=== PATIENT | female | born 1965 | race Caucasian/White ===

== ENCOUNTER 2020-01-25 12:48 | Inpatient (IN) | payer BC, OTHER ==
[2020-01-25 13:21] VITALS: BMI 34.2
[2020-01-25] MEDS ORDERED: diphenhydrAMINE HCL 25 MG CAPSULE (FP) PO ONE ×2 (13:29→13:45)
[2020-01-25] MEDS ORDERED: IBUPROFEN 600 MG TABLET (FP) PO ONE ×2 (14:01→14:08)
[2020-01-25] MEDS ORDERED: HYDROmorphone HCL 2 MG TABLET PO ONE (14:01)
--- NOTE | 2020-01-25 14:04 | PDOC ---
History of Present Illness - General Chief Complaint: Rash Stated Complaint: Allergic Reaction Time Seen by Provider: 01/25/20 13:41 - History of Present Illness Initial Comments: The pt is a 54F w/ a history of anxiety, chronic back pain, 'histamine problem' who presents for evaluation of diffuse rash for 1 day w/ associated itching and b/l hand swelling. Pt with worsening erythema to BUE/BLE, thorax, and abdomen. The pt reports she was recently diagnosed with Schamberg's disease. However the vascular rash she had on her BLE has now cleared and her rash is now pruritus, sporadically macular. Endorses chills. Denies chest pain, trouble breathing, cough, dysuria, hematuria, diarrhea, or changes in strength. Pt was seen at [facility] and was given Solumedrol 125mg IM 01/25/20 14:03 Past History - Medical History Allergies/Adverse Reactions: Allergies Allergy/AdvReac Type Severity Reaction Status Date / Time Penicillins Allergy Unknown Verified 01/01/16 20:51 DUST MITES Allergy Unknown Uncoded 01/01/16 20:51 Home Medications: Ambulatory Orders Amlodipine Besylate [Norvasc -] 10 mg PO DAILY 01/01/16 Gabapentin 300 mg PO DAILY 01/01/16 Levalbuterol Tartrate [Xopenex Hfa] 15 gm IH BID PRN 01/01/16 Meloxicam [Mobic] 15 mg PO DAILY 01/01/16 Metaxalone [Skelaxin] 800 mg PO TID 01/01/16 Naproxen [Naprosyn -] 500 mg PO BID PRN 01/01/16 Omeprazole 20 mg PO DAILY 01/01/16 Zolpidem Tartrate [Ambien] 10 mg PO HS 01/01/16 Asthma: Yes COPD: No Diabetes: No - Reproductive History Cervical CA: No Dysfunctional Uterine Bleeding: No Ectopic : No Endometrial CA: No Polycystic Ovaries: No Tubal Ligation: No - Immunization History Immunization Up to Date: Yes - Psycho-Social/Smoking History Smoking Status: No Smoking History: Unknown if ever smoked Have you smoked in the past 12 months: No Number of Cigarettes Smoked Daily: 0 If you are a former smoker, when did you quit?: 2006 - Substance Abuse Hx (Audit-C & DAST Scrn) How often the patient has a drink containing alcohol: Never Score: In Men: 4 or > Positive; In Women: 3 or > Positive: 0 Screen Result (Pos requires Nsg. Audit-10AR): Negative In the last yr the pt used illegal drug/Rx for NonMed reason: No Score: Yes response is considered Positive: 0 Screen Result (Positive result requires Nsg. DAST-10): Negative Review of Systems - Review of Systems Able to Perform ROS?: Yes Comments:: GENERAL/CONSTITUTIONAL: +chills; No weakness HEAD, EYES, EARS, NOSE AND THROAT: No change in vision. No change in hearing. No sore throat CARDIOVASCULAR: No chest pain or shortness of breath RESPIRATORY: Denies cough, hemoptysis GASTROINTESTINAL: No nausea, vomiting, diarrhea GENITOURINARY: No dysuria, MUSCULOSKELETAL: +chronic back pain SKIN: +diffuse rash/itching NEUROLOGIC: No headache, vertigo, loss of consciousness, or change in strength/sensation ENDOCRINE: No increased thirst. No abnormal weight change HEMATOLOGIC/LYMPHATIC: No anemia, easy bleeding, or history of blood clots ALLERGIC/IMMUNOLOGIC: +diffuse itching 01/25/20 16:18 Is the patient limited Ukrainian proficient: No *Physical Exam - Vital Signs Last Vital Signs Temp Pulse Resp BP Pulse Ox 99.3 F 108 H 20 91/66 100 01/25/20 13:17 01/25/20 13:17 01/25/20 13:17 01/25/20 13:17 01/25/20 13:17 - Physical Exam GENERAL: Awake, alert, and oriented to person/place/time, in no acute distress HEAD: No signs of trauma, normocephalic, atraumatic EYES: PERRLA, EOMI, sclera anicteric, conjunctiva clear ENT: Hearing grossly normal, nares patent, oropharynx clear without exudates. Moist mucosa, no intraoral lesions LUNGS: No distress, speaks in full sentences, clear to auscultation bilaterally HEART: Tachycardia rate with regular rhythm, normal S1 and S2, no murmurs appreciated, peripheral pulses normal and equal bilaterally ABDOMEN: Soft, nontender, normoactive bowel sounds. No guarding, no rebound EXTREMITIES: Moves all extremities independently; edema noted to b/l hands; cap refill < 2 sec NEUROLOGICAL: Cranial nerves II through XII grossly intact. Normal speech, normal gait, no focal sensorimotor deficits SKIN: Diffuse rash covering all extremities and torso; some areas of patchy, raised redness, areas of erythema with central clearing on palmar surfaces of BUE and medial b/l thighs; erythema and ecchymosis noted over b/l knuckles 01/25/20 16:21 ED Treatment Course - LABORATORY CBC & Chemistry Diagram: 01/25/20 15:15 01/25/20 15:15 - Medications Given in the ED: ED Medications Discontinued Medications Generic Name Dose Route Start Last Admin Trade Name Salud PRN Reason Stop Dose Admin Diphenhydramine HCl 25 mg 01/25/20 13:29 01/25/20 13:48 Benadryl - PO 01/25/20 13:30 25 mg ONCE ONE Administration Medical Decision Making - Medical Decision Making The pt is a 54F w/ a history of anxiety, GERD, chronic back pain, 'histamine problem' who presents for evaluation of diffuse rash for 1 day w/ associated itching and b/l hand swelling. ED Course Solumedrol given to pt prior to arrival Pt given Benadry 25mg PO, Pepcid 20mg IV given for itching Pt's home hydromorphone 2mg PO once given for pain Ibuprofen given for pain/ Pt applying own steroid cream Pt with complaints of typical GERD, will give Maalox ECG w/ NSR; HR 100; QTc 446; no axis deviation; similar to previous; no acute ischemic changes Pt noted to be tachycardic 108 and T 100.3 Will obtain labs 1L LR Vanc 1g IV once Ofirmev 1g given for fever CXR w/o focal infiltrate Plan for admission for diffuse cellulitis 01/25/20 16:27 Pt signed out to [facility] Admitting 01/25/20 18:02 Discharge - Discharge Information Problems reviewed: Yes Clinical Impression/Diagnosis: Rash Cellulitis Qualifiers: Site of cellulitis: other site Qualified Code(s): L03.818 - Cellulitis of other sites Condition: Stable - Admission Yes - Follow up/Referral - Patient Discharge Instructions - Post Discharge Activity
[2020-01-25] MEDS ORDERED: MAG HYDROX/AL HYDROX/SIMETH -MYLANTA- ORAL SUSPENSION PO ONE (14:07)
[2020-01-25] MEDS ORDERED: MAG HYDROX/AL HYDROX/SIMETH 30 ML UNIT-DOSE CUP ONE (14:08)
[2020-01-25] MEDS ORDERED: HYDROmorphone HCL 2 MG TABLET ONE (14:08)
--- NOTE | 2020-01-25 15:11 | PDOC ---
Documentation entered by Collette Weinstein SCRIBE, acting as scribe for Dennis Jaimes MD. Dennis Jaimes MD: This documentation has been prepared by the Js conley Ana, SCRIBE, under my direction and personally reviewed by me in its entirety. I confirm that the documentation accurately reflects all work, treatment, procedures, and medical decision making performed by me. Attending Attestation - Resident Resident Name: Rodrigue Hill - ED Attending Attestation I have performed the following: I have examined & evaluated the patient, The case was reviewed & discussed with the resident, I agree w/resident's findings & plan, Exceptions are as noted - HPI HPI: 01/25/20 14:07 Patient is a 54 year old female with a significant past medical history of asthma, degenerative joint disease, chronic/intermittent angina, HLD, and HTN, who presents to the ED with a rash accompanied with itching and swelling x1 day. Pt notes she has chronic rash to BLE but yesterday developed itchy and painful rash to her BUEs. Denies F/C. Patient denies: Allergies: Penicillins, dust mites - Physicial Exam PE: 01/25/20 14:11 See resident exam - Medical Decision Making 01/25/20 15:12 54 F with rash and fever in ED. ?cellulitis vs vasculitis. - Labs, ESR, CRP - Cultures - Tylenol - Abx Discharge - Discharge Information Problems reviewed: Yes Clinical Impression/Diagnosis: Rash, Vasculitis Cellulitis Qualifiers: Site of cellulitis: other site Qualified Code(s): L03.818 - Cellulitis of other sites Condition: Improved Disposition: HOME - Follow up/Referral - Patient Discharge Instructions - Post Discharge Activity
[2020-01-25] MEDS ORDERED: VANCOMYCIN 1 GM in D5W (PRE-DOCKED) 1,000 MG/250 ML IVPB ONE (15:24)
[2020-01-25] MEDS ORDERED: ACETAMINOPHEN 1000 MG/100 ML VIAL (NON FORMULARY) IVPB ONE (15:24)
[2020-01-25] MEDS ORDERED: ACETAMINOPHEN INJECTION 100 ML IVPB ONE (15:40)
[2020-01-25] MEDS ORDERED: VANCOMYCIN 1 GRAM (PRE-DOCKED) 1,000 MG/250 ML BAG IVPB ONE (15:40)
[2020-01-25 15:41] LABS: BASO % 0.1 % (0-2.0); EOS % 0.2 % (0-4.5); HEMATOCRIT 44.5 % (32.4-45.2); LYMPH % 7.3 % (8-40); MCH 30.7 pg (25.7-33.7); MCHC 33.7 g/dl (32.0-36.0); MEAN PLT VOLUME 8.1 fl (7.5-11.1); MONO % 1.9 % (3.8-10.2); NEUT % 90.5 % (42.8-82.8); RBC 4.89 M/mm3 (3.60-5.2); RDW 12.9 % (11.6-15.6); WHITE BLOOD COUNT 10.3 K/mm3 (4.0-10.0)
[2020-01-25 15:42] LABS: PLATELET COUNT 306 K/MM3 (134-434)
[2020-01-25 15:48] LABS: INR 1.09 (0.83-1.09); PROTHROMBIN TIME (PATIENT) 12.9 SEC (9.7-13.0)
[2020-01-25 15:51] LABS: ACTIVATED PTT 24.6 SECONDS (25.2-36.5)
[2020-01-25 16:11] LABS: ALBUMIN 4.2 g/dl (3.4-5.0); BILIRUBIN,TOTAL 1.1 mg/dL (0.2-1); BLOOD UREA NITROGEN 20.6 mg/dL (7-18); CALCIUM 9.1 mg/dL (8.5-10.1); CREATININE 1.2 mg/dL (0.55-1.3); N-TERMINAL BNP 126.3 pg/ml (5-125); POTASSIUM 4.4 mmol/L (3.5-5.1)
[2020-01-25 16:30] LABS: ERYTHROCYTE SEDIMENTATION RATE 6 mm/hr (0-30)
[2020-01-25] MEDS ORDERED: LACTATED RINGERS SOLUTION 1000 ML INFUS.BAG IV ONE (16:30)
--- NOTE | 2020-01-25 17:05 | PN ---
Teaching Attending Note Name of Resident: Jose Sanchez ATTENDING PHYSICIAN STATEMENT I saw and evaluated the patient. I reviewed the resident's note and discussed the case with the resident. I agree with the resident's findings and plan as documented. SUBJECTIVE: 54 year old morbidly obese female with known history of DJD, chronic/intermitte nt angina, hypertension, hyperlipidemia, Covid-19 (September 2019) who presents to the ED complaining of a rash throughout her body. She reports that a week ago she began noticing a purpuric rash on her bilateral lower extremities, which slowly resolved however moved to the rest of her body. She thinks she got a bite at the back of her neck about 1-2 weeks ago. The rash has since become very itchy. She went to her family resource specialist yesterday who told her it is Schamberg's disease. She has been using a topical steroid without improvement. OBJECTIVE: Gen: morbidly obese female who appears appropriate for stated age, not in acute distress HEENT: EOMI, no oral lesions neck; short and thick, no LAD CVS: mildly tachycardic, no murmurs Chest: clear breath sounds abd: protuberant abdomen, soft, hypoactive bowel sounds ext; no edema, feet are warm and dry [employer]CHITECT: no motor nor sensory deficit Integumentary: macular and maculopapular rash throughout her body. Some are homogenous and diffuse. there are round lesions with a deep pink center. The rash is purpuric. ASSESSMENT AND PLAN: 1. disseminated purpuric and pruritic rash - patient reports she got bitten by a bug - also recently recovered from covid-19 - Ddx: tick-borne illness, Covid-19, vasculitis, hypersensitivity reaction - Dr Willis (ID) consulted - send test for Lyme, babesia, anaplasma - Vanco received in ED - send crp, esr, will add D-dimer - Benadryl to aid with pruritus - received high dose methylprednisolone. cont with IV steroids q 8 2. Recently recovered from Covid-19 - routine covid testing 3. DVT prophylaxis DW Dr Figueroa and Dr Garcia. Agree with their management, plans of care, history and exam
[2020-01-25] MEDS ORDERED: diphenhydrAMINE HCL 25 MG CAPSULE (FP) PO PRN (18:28)
[2020-01-25] MEDS ORDERED: SODIUM CHLORIDE 1,000 ML IV SCH (18:30)
[2020-01-25 18:55] LABS: EPI CELLS 13 /uL (0-25.1); HYALINE CASTS 6 /uL (0-3.1); PH,URINE 5.5 (5.0-8.0); URINE APPEARANCE CLEAR; URINE BACTERIA 283 /uL (0-1359); URINE BILIRUBIN NEGATIVE (NEGATIVE); URINE COLOR YELLOW; URINE GLUCOSE (UA) 3+ (NEGATIVE); URINE KETONE NEGATIVE (NEGATIVE); URINE LEUK ESTERASE 1+ (NEGATIVE); URINE NITRITE NEGATIVE (NEGATIVE); URINE PROTEIN TRACE (NEGATIVE); URINE RBC 9 /uL (0-23.9); URINE WBC 146 /uL (0-25.8)
[2020-01-25] MEDS ORDERED: PANTOPRAZOLE 40 MG TABLET ONE (18:57)
[2020-01-25] MEDS: PANTOPRAZOLE 40 MG TABLET PO SCH ×2 (18:58→19:03)
--- NOTE | 2020-01-25 18:59 | HP ---
CHIEF COMPLAINT: Diffuse itchy bilateral maculopapular rash and bilateral hand swelling PCP: Dr. Washington HISTORY OF PRESENT ILLNESS: 54 year old female patient with past medical history that includes anxiety, COVID in september, chronic back pain, Schamberg's Disease diagnosed 01/18/20, and a "histamine problem", who presented to the ED with 2 days of a diffuse maculopapular itchy rash ascending from her legs to her pelvis, chest, back, and upper extremities. The patient also reports that she recently removed a black object on the back of her neck that may have been a tick. In the ED, the patient had a fever of 103F, which then fell to 99.3F, and she was tachycardic at 108 bpm. A chest xray fount a left upper lobe lung nodule. A CT A/P from a previous admission found a 1 cm calcified mass on the gastrohepatic ligament. Recent Travel: PAST MEDICAL HISTORY: anxiety, COVID in september, chronic back pain, Schamberg's Disease diagnosed 01/18/20, and a "histamine problem" PAST SURGICAL HISTORY: Social History: Smoking: Former smoker Alcohol: Denies Drugs: Denies Allergies Penicillins Allergy - Causes acne per patient (Unknown, Verified 01/01/16 20:51) DUST MITES Allergy (Unknown, Uncoded 01/01/16 20:51) HOME MEDICATIONS: Home Medications Medication Instructions Recorded Amlodipine Besylate [Norvasc -] 10 mg PO DAILY 01/01/16 Gabapentin 300 mg PO DAILY 01/01/16 Levalbuterol Tartrate [Xopenex Hfa] 15 gm IH BID PRN 01/01/16 Meloxicam [Mobic] 15 mg PO DAILY 01/01/16 Metaxalone [Skelaxin] 800 mg PO TID 01/01/16 Naproxen [Naprosyn -] 500 mg PO BID PRN 01/01/16 Omeprazole 20 mg PO DAILY 01/01/16 Zolpidem Tartrate [Ambien] 10 mg PO HS 01/01/16 REVIEW OF SYSTEMS CONSTITUTIONAL: chills Absent: generalized weakness CARDIOVASCULAR: Absent: peripheral edema RESPIRATORY: Absent: cough, shortness of breath GASTROINTESTINAL: Absent: diarrhea GENITOURINARY: Absent: dysuria, hematuria SKIN: rash, itching Absent: PSYCHIATRIC: anxiety Absent: PHYSICAL EXAMINATION Vital Signs - 24 hr 01/25/20 01/25/20 13:17 14:58 Temperature 99.3 F Pulse Rate 108 H Respiratory 20 Rate Blood Pressure 91/66 O2 Sat by Pulse 100 95 Oximetry (%) GENERAL: Awake, alert, and fully oriented, in mild acute distress. HEAD: Normal with no signs of trauma. EYES: Pupils equal, round and reactive to light, extraocular movements intact. No lid lag. EARS, NOSE, THROAT: Ears normal, nares patent, oropharynx clear without exudates. Moist mucous membranes. No lesions noted inside the oral cavity. NECK: Normal range of motion, supple without lymphadenopathy, JVD, or masses. LUNGS: Breath sounds equal, clear to auscultation bilaterally. No wheezes, and no crackles. No accessory muscle use. HEART: Regular rate and rhythm, normal S1 and S2 without murmur, rub or gallop. ABDOMEN: Soft, nontender, high bmi, normoactive bowel sounds, no guarding, no rebound, no masses. MUSCULOSKELETAL: Normal range of motion at all joints. No bony deformities or tenderness. UPPER EXTREMITIES: 2+ pulses, warm, well-perfused. No cyanosis. No clubbing. Swelling of hands. LOWER EXTREMITIES: 2+ pulses, warm, well-perfused. No calf tenderness. NEUROLOGICAL: Normal speech. Normal gait. PSYCHIATRIC: Cooperative. Good eye contact. Appropriate mood and affect. SKIN: Diffuse maculopapular rash, petechial in nature. Laboratory Results - last 24 hr 01/25/20 01/25/20 01/25/20 15:15 15:15 15:15 WBC 10.3 H RBC 4.89 Hgb 15.0 Hct 44.5 MCV 91.0 MCH 30.7 MCHC 33.7 RDW 12.9 Plt Count 306 MPV 8.1 Absolute Neuts (auto) 9.3 H Neutrophils % 90.5 H Lymphocytes % 7.3 L D Monocytes % 1.9 L Eosinophils % 0.2 D Basophils % 0.1 Nucleated RBC % 0 ESR 6 PT with INR INR PTT (Actin FS) Sodium 133 L Potassium 4.4 Chloride 96 L Carbon Dioxide 29 Anion Gap 9 BUN 20.6 H Creatinine 1.2 Est GFR (CKD-EPI)AfAm 58.51 Est GFR (CKD-EPI)NonAf 50.48 Random Glucose 276 H Calcium 9.1 Magnesium 2.0 Ferritin 72.1 Total Bilirubin 1.1 H AST 39 H ALT 36 Alkaline Phosphatase 82 Troponin I < 0.02 C-Reactive Protein 10.4 H B-Natriuretic Peptide 126.3 H Total Protein 7.0 Albumin 4.2 01/25/20 15:15 WBC RBC Hgb Hct MCV MCH MCHC RDW Plt Count MPV Absolute Neuts (auto) Neutrophils % Lymphocytes % Monocytes % Eosinophils % Basophils % Nucleated RBC % ESR PT with INR 12.90 INR 1.09 PTT (Actin FS) 24.6 L Sodium Potassium Chloride Carbon Dioxide Anion Gap BUN Creatinine Est GFR (CKD-EPI)AfAm Est GFR (CKD-EPI)NonAf Random Glucose Calcium Magnesium Ferritin Total Bilirubin AST ALT Alkaline Phosphatase Troponin I C-Reactive Protein B-Natriuretic Peptide Total Protein Albumin ASSESSMENT/PLAN: 54 year old female patient with past medical history that includes anxiety, COVID in september, chronic back pain, Schamberg's Disease diagnosed 01/18/20, and a "histamine problem", who presented to the ED with 2 days of a diffuse maculopapular itchy rash ascending from her legs to her pelvis, chest, back, and upper extremities. 1. Diffuse ascending itchy bilateral maculopapular rash, petechial in nature with bilateral hand swelling secondary to blood borne infection vs allergic reaction vs cellulitis vs autoimmune reaction - The patient received 1 dose of Vancomycin, Benadryl, Pepcid, and Solu-medrol in the ED - Continue Pepcid, which the patient reported gives her relief - Continue H2 Arcenio - Continue Benadryl as needed - Consider topical cream - Will monitor vitals - Will send for COVID, Lyme Disease, and Herpes - Blood Cultures, Urine Cultures, Urinalysis - Can consider autoimmune etiology in presence of lung nodule found on CXR - ID consulted 2. Anxiety - Patient was assured that we will be here to help and assist her. 3. Schamberg's Disease - Legs have a milder rash than the arms - Monitoring the rash on her legs # FEN - Normal Saline, Monitoring Electrolytes, Diabetic/Sodium Diet DVT PPx - Heparin SQ Visit type - Emergency Visit Emergency Visit: Yes ED Registration Date: 01/25/20 Care time: The patient presented to the Emergency Department on the above date and was hospitalized for further evaluation of their emergent condition. - New Patient This patient is new to me today: Yes Date on this admission: 01/25/20 - Critical Care Critical Care patient: No ATTENDING PHYSICIAN STATEMENT I saw and evaluated the patient. I reviewed the resident's note and discussed the case with the resident. I agree with the resident's findings and plan as documented. SUBJECTIVE: OBJECTIVE: ASSESSMENT AND PLAN:
[2020-01-25] MEDS ORDERED: clonazePAM 0.5 MG TABLET PO ONE (21:14)
[2020-01-25] MEDS ORDERED: GABAPENTIN 300 MG CAPSULE PO SCH (22:00)
[2020-01-25] MEDS ORDERED: PATIENT'S OWN MEDICATION (NON-FORMULARY) (Metaxalone [Skelaxin] 800 MG) PO SCH (22:00)
[2020-01-25] MEDS: FAMOTIDINE 20 MG/50 ML IVPB 20 MG/50 ML MG IVPB SCH (22:08)
[2020-01-25] MEDS ORDERED: ALPRAZolam 1 MG TABLET PO PRN (23:01)
[2020-01-25] MEDS: BETAMETHASONE DIPR 0.05% CREAM 15 GM TUBE TP SCH (23:08)
[2020-01-26] MEDS ORDERED: PNEUMOC 13-VAL CONJ-DIP CRM/PF 0.5 ML DISP.SYRIN IM ONE (01:53)
[2020-01-26] MEDS ORDERED: IBUPROFEN 600 MG TABLET (FP) PO ONE (02:24)
[2020-01-26] MEDS ORDERED: MELATONIN 5 MG TABLETS PO ONE (02:25)
[2020-01-26 02:37] LABS: ANISOCYTOSIS 0; MACROCYTOSIS 0; PLATELET ESTIMATE NORMAL
[2020-01-26] MEDS ORDERED: HYDROmorphone HCL 2 MG TABLET PO ONE (02:45)
[2020-01-26] MEDS ORDERED: HYDROmorphone HCL CARPU-JECT 2 MG/1 ML DISP.SYRIN IVPB ONE (02:55)
[2020-01-26] MEDS ORDERED: GABAPENTIN 300 MG CAPSULE PO ONE (02:57)
[2020-01-26] MEDS: methylPREDNISolone NA SUCC 40 MG/1 ML VIAL IVPUSH SCH ×3 (03:23→18:39)
[2020-01-26] MEDS ORDERED: HYDROmorphone HCl 2 MG/ML VIAL IVPB ONE (03:30)
[2020-01-26] MEDS ORDERED: GABAPENTIN 250 MG/5 ML ORAL SOLUTION, 470 ML BOTTLE PO ONE ×2 (03:30→20:45)
[2020-01-26] MEDS ORDERED: INSULIN (NOVOLOG) ASPART 100 UNITS/ML 10ML VIAL SQ ONE (03:40)
[2020-01-26] MEDS: INSULIN SLIDING SCALE (NOVOLOG) 1 VIAL SQ SCH ×5 (06:10→22:39)
[2020-01-26] MEDS ORDERED: INSULIN SLIDING SCALE (NOVOLOG) 1 VIAL SQ SCH (07:00)
[2020-01-26] MEDS ORDERED: PNEUMOCOCCAL 23 VACCINE 0.5 ML VIAL IM ONE (09:00)
[2020-01-26] MEDS ORDERED: PT OWN MED DRAWER 7, Y5N ONE (09:05)
[2020-01-26] MEDS: ACETAMINOPHEN 325 MG TABLET (FP) PO PRN ×2 (09:12→21:59)
[2020-01-26] MEDS: PANTOPRAZOLE 40 MG TABLET PO SCH (09:12)
[2020-01-26] MEDS: NIFEdipine E.R 60 MG TABLET PO SCH (09:12)
[2020-01-26] MEDS: FAMOTIDINE 20 MG/50 ML IVPB 20 MG/50 ML MG IVPB SCH (09:12)
[2020-01-26] MEDS: DULoxetine HCL 30 MG CAPSULE.DR PO SCH (09:12)
[2020-01-26] MEDS: BETAMETHASONE DIPR 0.05% CREAM 15 GM TUBE TP SCH ×2 (09:12→22:38)
[2020-01-26] MEDS ORDERED: PATIENT'S OWN MEDICATION (NON-FORMULARY) (Meloxicam [Mobic] 15 MG) PO SCH (10:00)
--- NOTE | 2020-01-26 10:54 | CON.ID ---
Consult Consult Specialty:: infectious diseases Referred by:: Reason for Consultation:: rash - History of Present Illness Chief Complaint: rash all over the body History of Present Illness: 54 year old morbidly obese female with known history of DJD, chronic/intermittent angina, hypertension, hyperlipidemia, Covid-19 (September 2019) coming in complaining of a rash throughout her body. She reports that a week ago she began noticing a purpuric rash on her bilateral lower extremities, which slowly resolved however moved to the rest of her body. She thinks she got a bite at the back of her neck about 1-2 weeks ago. The rash has since become very itchy. She went to her title lawyer yesterday who told her it is Schamberg's disease. She has been using a topical steroid without improvement. currently she is itching a lot and says it is very bad - History Source History Provided By: Patient Limitations to Obtaining History: No Limitations - Alcohol/Substance Use Hx Alcohol Use: No - Smoking History Smoking history: Never smoked Have you smoked in the past 12 months: No Aproximately how many cigarettes per day: 0 If you are a former smoker, when did you quit?: 2005 Home Medications - Allergies Allergies/Adverse Reactions: Allergies Allergy/AdvReac Type Severity Reaction Status Date / Time Penicillins Allergy Unknown Verified 01/25/20 19:08 DUST MITES Allergy Unknown Uncoded 01/25/20 19:08 - Home Medications Home Medications: Ambulatory Orders Gabapentin 600 mg PO TID 01/01/16 Levalbuterol Tartrate [Xopenex Hfa] 15 gm IH BID PRN 01/01/16 Meloxicam [Mobic] 15 mg PO DAILY 01/01/16 Metaxalone [Skelaxin] 800 mg PO TID 01/01/16 Alprazolam [Xanax] 1 mg PO HS 01/25/20 Duloxetine HCl [Cymbalta] 30 mg PO DAILY 01/25/20 Famotidine [Pepcid] 40 mg PO DAILY 01/25/20 Nifedipine [Procardia Xl] 60 mg PO DAILY 01/25/20 clonazePAM [Klonopin -] 0.5 mg PO BID PRN 01/25/20 Montelukast Sodium 10 mg PO DAILY 01/26/20 Review of Systems - Review of Systems Constitutional: reports: Other Eyes: reports: No Symptoms HENT: reports: No Symptoms Neck: reports: No Symptoms Cardiovascular: reports: No Symptoms Respiratory: reports: No Symptoms Gastrointestinal: reports: No Symptoms Genitourinary: reports: No Symptoms Musculoskeletal: reports: No Symptoms Integumentary: reports: Rash Neurological: reports: No Symptoms Endocrine: reports: No Symptoms Hematology/Lymphatic: reports: No Symptoms Psychiatric: reports: No Symptoms Physical Exam Vital Signs: Vital Signs Temperature 98.2 F 01/26/20 06:00 Pulse Rate 94 H 01/26/20 06:00 Respiratory Rate 01/26/20 06:00 Blood Pressure 138/84 01/26/20 06:00 O2 Sat by Pulse Oximetry (%) 92 L 01/26/20 06:00 Constitutional: Yes: Well Nourished, Calm, Moderate Distress Eyes: Yes: Conjunctiva Clear HENT: Yes: Atraumatic, Normocephalic Neck: Yes: Supple, Trachea Midline Cardiovascular: Yes: Regular Rate and Rhythm Respiratory: Yes: Regular, CTA Bilaterally Gastrointestinal: Yes: Normal Bowel Sounds, Soft Musculoskeletal: Yes: WNL Extremities: Yes: WNL Integumentary: Yes: Rash (diffuse maculo papular rash all over the body wih multiple hypopigmented spots) Neurological: Yes: Alert, Oriented Psychiatric: Yes: Alert, Oriented Labs: CBC, BMP 01/25/20 15:15 01/25/20 15:15 Imaging - Results Chest X-ray: Report Reviewed, Image Reviewed Assessment/Plan this patient with multiple medical problems coming in with sudden onset of rash and lactic acidosis also with h/o of bite plan i am going to start patient on doxy i think we should get a biopsy on the patient skin also dermatology consider iv steroids and benadryl for itching she could have a host of conditions including vasculitis autoimmune diseases dermatitis and much more also follow lactic acid
[2020-01-26 11:42] LABS: HEMATOCRIT 37.3 % (32.4-45.2); HEMOGLOBIN 12.5 GM/dL (10.7-15.3); MCHC 33.5 g/dl (32.0-36.0); MEAN CELL VOLUME 92.4 fl (80-96); MEAN PLT VOLUME 7.9 fl (7.5-11.1); PLATELET COUNT 262 K/MM3 (134-434); RBC 4.04 M/mm3 (3.60-5.2); RDW 13.1 % (11.6-15.6); WHITE BLOOD COUNT 12.9 K/mm3 (4.0-10.0)
--- NOTE | 2020-01-26 12:13 | EKG ---
Test Reason : Blood Pressure : / mmHG Vent. Rate : 100 BPM Atrial Rate : 100 BPM P-R Int : 160 ms QRS Dur : 074 ms QT Int : 346 ms P-R-T Axes : 053 053 045 degrees QTc Int : 446 ms NORMAL SINUS RHYTHM ABNORMAL ECG WHEN COMPARED WITH ECG OF 01-JAN-2016 22:01, NONSPECIFIC T WAVE ABNORMALITY NOW EVIDENT IN LATERAL LEADS Confirmed by JACKELYN QUEZADA MD ([id number]) on 01/26/2020 12:13:14 PM Referred By: Confirmed By:JACKELYN QUEZADA MD
[2020-01-26 12:14] LABS: ALBUMIN 3.9 g/dl (3.4-5.0); BILIRUBIN,TOTAL 0.6 mg/dL (0.2-1); BLOOD UREA NITROGEN 26.5 mg/dL (7-18); CALCIUM 9.1 mg/dL (8.5-10.1); CREATININE 1.1 mg/dL (0.55-1.3); POTASSIUM 3.9 mmol/L (3.5-5.1); TOT PROT 6.8 g/dl (6.4-8.2)
[2020-01-26] MEDS: DOXYCYCLINE HYCLATE 100 MG CAPSULE PO SCH ×2 (12:27→18:38)
--- NOTE | 2020-01-26 13:41 | PN ---
Teaching Attending Note Name of Resident: Naveed Osei ATTENDING PHYSICIAN STATEMENT I saw and evaluated the patient. I reviewed the resident's note and discussed the case with the resident. I agree with the resident's findings and plan as documented. SUBJECTIVE: Reports fever yesterday. Reports treatment for UTI x 1 week. last dose of Macrobid was not taken yesterday. No topical application of any meds on rash. + itching . no joint pain, no N/V. No diarrhea. removed what looked like a tick from her neck on january 17. rash started on legs on january 07 , it improved/resolved then on january 16 it spread on all her skin . feet and hands were very swollen. denies autoimmune disease in family. denies drug or herbal supp OBJECTIVE: anxious looking , interrupts MD. MMM Cv: RRR, no mRG Lungs: CTAB skin : rash all over the body excluding MM and palms and soles. rash has different appearance on different areas of the body. maculopapular on areas, blanching in most areas, and not blanching in others. areas with central clearing. purpule patches on dorsal hands. posterior neck with a small ulcer with healing at site of the " tick " bite slight edema on feet and hands ASSESSMENT AND PLAN: 54 y/o lady with h/o fibromyalgia, anxiety, Dm ( not onmeds ) panic attacks, DJD, angina, HTN, HLP, and recent PNA , had COVID in 09/22, who presented with generalized rash 1- Rash: high suspicion fro urticarial vasculitis. I don't think Abx use is relevant as rash started before the macrobid was started. I don;t think tick bite is contributing as rash started before tick bite. can't r/o viral infection as a cause less likely bacterial infection - send pANCA, cANCA, WISAM. - send Hep B, Hep C - follow lyme serology and blood cx - will consult derm fro biopsy - consult rheum - cont steroids for now IV - hydroxyzine for itching - dc IVF 2- ELEvated blood sugar . she reprots Dm but not onmeds. - check A1c - expect sugar to be very high with the IV steroids - give a dose of levemir now and start levemir daily with SSI 3- h/o Fibromyalgia : cont cymbalta 4- h/o anxiety : cont klonopin 5- Elevated D dimer : start with US of lower extremities . 6- HTN: cont nifedipine HLOC
[2020-01-26] MEDS: clonazePAM 0.5 MG TABLET PO PRN (13:56)
[2020-01-26] MEDS ORDERED: INSULIN (LEVEMIR) 100 UNITS/ML UNITS SQ ONE (15:15)
[2020-01-26] MEDS: hydrOXYzine PAMOATE 50 MG CAPSULE (FP) PO PRN (18:37)
[2020-01-26] MEDS: HYDROmorphone HCL 2 MG TABLET PO PRN (18:37)
--- NOTE | 2020-01-26 20:11 | PN ---
Physical Exam: SUBJECTIVE: No overnight events. Patient seen and examined. Pt endorses pruritus and pain 2/2 rash on her arms, legs, abdomen, and back. OBJECTIVE: Vital Signs Period Temp Pulse Resp BP Sys/Lopez Pulse Ox Last 24 Hr 97.3 F-98.3 F 91-105 18-20 115-139/81-99 92-97 GENERAL: The patient is awake, alert, and fully oriented. In distress due to pruritus & pain. HEENT: NT, NC. MMM. Healing ulcer at site of alleged tick bite s/p removal. Unable to assess Lungs, Heart and abdomen 2/2 pt refusal. EXTREMITIES: non-pitting edema of hands and legs NEUROLOGICAL: gait not observed. PSYCH: anxious SKIN: maculopapular rash on legs, arms, abdomen, back. blanching erythema on back. Dorsum of hands were purple. Laboratory Results - last 24 hr 01/25/20 01/25/20 01/25/20 15:15 18:30 19:00 WBC RBC Hgb Hct MCV MCH MCHC RDW Plt Count MPV Neutrophils % (Manual) 65.3 Band Neutrophils % 19.8 Lymphocytes % (Manual) 6.9 L Monocytes % (Manual) 0 L Eosinophils % (Manual) 2.0 Basophils % (Manual) 0.0 Myelocytes % (Man) 0 Promyelocytes % (Man) 0 Blast Cells % (Manual) 0 Nucleated RBC % 0 Metamyelocytes 2 Hypochromia 0 Platelet Estimate Normal Polychromasia 0 Poikilocytosis 0 Anisocytosis 0 Microcytosis 0 Macrocytosis 0 ESR Sodium Potassium Chloride Carbon Dioxide Anion Gap BUN Creatinine Est GFR (CKD-EPI)AfAm Est GFR (CKD-EPI)NonAf POC Glucometer Random Glucose Lactic Acid 5.0 H* Calcium Total Bilirubin AST ALT Alkaline Phosphatase C-Reactive Protein Total Protein Albumin COVID-19 (GILBERT) Not detected 01/25/20 01/26/20 01/26/20 22:46 02:03 06:06 WBC RBC Hgb Hct MCV MCH MCHC RDW Plt Count MPV Neutrophils % (Manual) Band Neutrophils % Lymphocytes % (Manual) Monocytes % (Manual) Eosinophils % (Manual) Basophils % (Manual) Myelocytes % (Man) Promyelocytes % (Man) Blast Cells % (Manual) Nucleated RBC % Metamyelocytes Hypochromia Platelet Estimate Polychromasia Poikilocytosis Anisocytosis Microcytosis Macrocytosis ESR Sodium Potassium Chloride Carbon Dioxide Anion Gap BUN Creatinine Est GFR (CKD-EPI)AfAm Est GFR (CKD-EPI)NonAf POC Glucometer [phone] Random Glucose Lactic Acid Calcium Total Bilirubin AST ALT Alkaline Phosphatase C-Reactive Protein Total Protein Albumin COVID-19 (GILBERT) 01/26/20 01/26/20 01/26/20 10:46 10:46 10:46 WBC 12.9 H RBC 4.04 Hgb 12.5 Hct 37.3 D MCV 92.4 MCH 31.0 MCHC 33.5 RDW 13.1 Plt Count 262 MPV 7.9 Neutrophils % (Manual) Band Neutrophils % Lymphocytes % (Manual) Monocytes % (Manual) Eosinophils % (Manual) Basophils % (Manual) Myelocytes % (Man) Promyelocytes % (Man) Blast Cells % (Manual) Nucleated RBC % Metamyelocytes Hypochromia Platelet Estimate Polychromasia Poikilocytosis Anisocytosis Microcytosis Macrocytosis ESR Sodium 134 L Potassium 3.9 Chloride 98 Carbon Dioxide 25 Anion Gap 11 BUN 26.5 H Creatinine 1.1 Est GFR (CKD-EPI)AfAm 65.00 Est GFR (CKD-EPI)NonAf 56.08 POC Glucometer Random Glucose 344 H Lactic Acid 2.5 H* Calcium 9.1 Total Bilirubin 0.6 AST 23 ALT 34 Alkaline Phosphatase 69 C-Reactive Protein 24.5 H Total Protein 6.8 Albumin 3.9 COVID-19 (GILBERT) 01/26/20 01/26/20 01/26/20 10:46 12:06 18:43 WBC RBC Hgb Hct MCV MCH MCHC RDW Plt Count MPV Neutrophils % (Manual) Band Neutrophils % Lymphocytes % (Manual) Monocytes % (Manual) Eosinophils % (Manual) Basophils % (Manual) Myelocytes % (Man) Promyelocytes % (Man) Blast Cells % (Manual) Nucleated RBC % Metamyelocytes Hypochromia Platelet Estimate Polychromasia Poikilocytosis Anisocytosis Microcytosis Macrocytosis ESR 38 H Sodium Potassium Chloride Carbon Dioxide Anion Gap BUN Creatinine Est GFR (CKD-EPI)AfAm Est GFR (CKD-EPI)NonAf POC Glucometer 339 302 Random Glucose Lactic Acid Calcium Total Bilirubin AST ALT Alkaline Phosphatase C-Reactive Protein Total Protein Albumin COVID-19 (GILBERT) Active Medications Generic Name Dose Route Start Last Admin Trade Name Freq PRN Reason Stop Dose Admin Acetaminophen 650 mg 01/25/20 18:29 01/26/20 09:12 Tylenol - PO 650 mg Q6H PRN Administration Fever Or Pain Betamethasone Dipropionate 1 applic 01/25/20 22:00 01/26/20 09:12 Diprosone 0.05% Cream - TP 1 applic BID TISHA Administration Clonazepam 0.5 mg 01/26/20 13:46 01/26/20 13:56 Klonopin - PO 0.5 mg BID PRN Administration ANXIETY Doxycycline Hyclate 100 mg 01/26/20 11:01 01/26/20 18:38 Vibramycin - PO 100 mg BID@1000,1800 TISHA Administration Duloxetine HCl 30 mg 01/26/20 10:00 01/26/20 09:12 Cymbalta - PO 30 mg DAILY TISHA Administration Hydromorphone HCl 2 mg 01/26/20 18:24 01/26/20 18:37 Dilaudid - PO 2 mg Q12H PRN Administration PAIN LEVEL 6-10 Hydroxyzine Pamoate 50 mg 01/26/20 15:07 01/26/20 18:37 Vistaril - PO 50 mg Q8H PRN Administration itching Insulin Aspart 1 vial 01/26/20 11:30 01/26/20 18:45 Novolog Vial Sliding Scale - SQ 8 unit ACHS TISHA Administration Protocol Insulin Detemir 15 units 01/27/20 07:00 Levemir Vial SQ AM TISHA Loratadine 10 mg 01/27/20 10:00 Claritin - PO DAILY [facility] Methylprednisolone Sodium Succinate 40 mg 01/26/20 02:00 01/26/20 18:39 Solu-Medrol - IVPUSH 40 mg Q8H-IV TISHA Administration Montelukast Sodium 10 mg 01/26/20 22:00 Singulair - PO HS TISHA Nifedipine 60 mg 01/26/20 10:00 01/26/20 09:12 Procardia Xl - PO 60 mg DAILY TISHA Administration Non-Formulary Medication 800 mg 01/25/20 22:00 Metaxalone [Skelaxin] PO TID TISHA Pantoprazole Sodium 40 mg 01/25/20 18:30 01/26/20 09:12 Protonix - PO 40 mg DAILY TISHA Administration Rosuvastatin Calcium 5 mg 01/26/20 22:00 Crestor - PO HS [facility] ASSESSMENT/PLAN: 54 YO F PMH Chronic back pain, anxiety, fibromyalgia, HTN, HLD, asthma, recent PNA, w/ COVID in September, and 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 #Rash -CRP 24.5 -pts rash began before nitrofurantoin use and alleged tick bite. likely 2/2 vasculitis. -WISAM, c-ANCA, p-ANCA, Hep B, Hep C ordered -methylprednisolone 40 mg IV Q8H - hydroxyzine 50 mg PO QH PRN for pruritus -ID c/s appreciated. Pt started on doxycycline 100 mg PO BID -f/u Rheum c/s -f/u derm c/s for biopsy -f/u lyme serology #DM -s/p Levemir 10 units SQ. Started on Levemir 15 units SQ AM starting tomorrow. -c/w ISS -f/u HgbA1c #D-Dimer elevated: 9208 -Duplex LE to r/o DVT #Anxiety -clonazepam (Klonopin) 0.5 mg PO BID PRN #Fibromyalgia -duloxetine (Cymbalta) 30 mg PO daily -hydromorphone 2 mg PO BID PRN for pain #HTN -c/w nifedipine 60 mg PO daily #HLD Rosuvastatin 5 mg PO daily #Asthma c/w singulair #FEN no IV fluis monitor lytes diabetic/na controlled diet #DVT PPX SCD #DISPO maintian med surg Visit type - Emergency Visit Emergency Visit: Yes ED Registration Date: 01/25/20 Care time: The patient presented to the Emergency Department on the above date and was hospitalized for further evaluation of their emergent condition. - New Patient This patient is new to me today: Yes Date on this admission: 01/26/20 - Critical Care Critical Care patient: No ATTENDING PHYSICIAN STATEMENT I saw and evaluated the patient. I reviewed the resident's note and discussed the case with the resident. I agree with the resident's findings and plan as documented. SUBJECTIVE: OBJECTIVE: ASSESSMENT AND PLAN:
[2020-01-26] MEDS: ROSUVASTATIN CA 5 MG TABLET (FP) PO SCH (21:53)
[2020-01-26] MEDS: MONTELUKAST NA 10 MG TABLET PO SCH (21:53)
[2020-01-26] MEDS ORDERED: HYDROmorphone HCL 2 MG TABLET PO SCH (22:00)
[2020-01-26] MEDS ORDERED: LEVALBUTEROL HCL 0.31 MG/3 ML VIAL.NEB IH PRN ×2 (22:22→22:28)
[2020-01-26] MEDS ORDERED: ALPRAZolam 1 MG TABLET PO PRN (22:30)
[2020-01-26] MEDS ORDERED: FLUTICASONE PROP 0.05% 16 GM NASAL SPRAY NS PRN (22:32)
[2020-01-26] MEDS ORDERED: ALBUTEROL SO4 HFA INHALER IH PRN (22:32)
[2020-01-27] MEDS: methylPREDNISolone NA SUCC 40 MG/1 ML VIAL IVPUSH SCH ×2 (03:00→10:45)
[2020-01-27] MEDS: HYDROmorphone HCL 2 MG TABLET PO PRN ×2 (06:51→20:34)
[2020-01-27] MEDS: INSULIN (LEVEMIR) 100 UNITS/ML UNITS SQ SCH (06:52)
[2020-01-27] MEDS: INSULIN SLIDING SCALE (NOVOLOG) 1 VIAL SQ SCH ×4 (06:53→23:13)
[2020-01-27] MEDS: clonazePAM 0.5 MG TABLET PO PRN ×3 (07:02→20:30)
[2020-01-27 08:33] LABS: BASO % 0.5 % (0-2.0); EOS % 1.6 % (0-4.5); HEMOGLOBIN 12.2 GM/dL (10.7-15.3); LYMPH % 9.2 % (8-40); MCH 31.6 pg (25.7-33.7); MEAN PLT VOLUME 8.4 fl (7.5-11.1); MONO % 2.1 % (3.8-10.2); NEUT % 86.6 % (42.8-82.8); PLATELET COUNT 266 K/MM3 (134-434); RBC 3.88 M/mm3 (3.60-5.2); RDW 13.3 % (11.6-15.6)
[2020-01-27 09:03] LABS: ALBUMIN 3.8 g/dl (3.4-5.0); BILIRUBIN,TOTAL 0.4 mg/dL (0.2-1); CALCIUM 9.1 mg/dL (8.5-10.1); CREATININE 0.9 mg/dL (0.55-1.3); MAGNESIUM 2.7 mg/dL (1.8-2.4); PHOSPHOROUS 2.4 mg/dL (2.5-4.9); POTASSIUM 3.7 mmol/L (3.5-5.1); TOT PROT 6.9 g/dl (6.4-8.2)
[2020-01-27] MEDS ORDERED: hydrOXYzine PAMOATE 50 MG CAPSULE (FP) PO SCH (10:00)
[2020-01-27] MEDS: DOXYCYCLINE HYCLATE 100 MG CAPSULE PO SCH ×2 (10:45→17:34)
[2020-01-27] MEDS: LORATADINE 10 MG TABLET PO SCH (10:45)
[2020-01-27] MEDS: hydrOXYzine PAMOATE 50 MG CAPSULE (FP) PO PRN (10:45)
[2020-01-27] MEDS: PANTOPRAZOLE 40 MG TABLET PO SCH (10:46)
[2020-01-27] MEDS ORDERED: INSULIN (NOVOLOG) ASPART 100 UNITS/ML 10ML VIAL ONE (10:47)
[2020-01-27] MEDS: DULoxetine HCL 30 MG CAPSULE.DR PO SCH (10:48)
[2020-01-27] MEDS: NIFEdipine E.R 60 MG TABLET PO SCH (11:04)
[2020-01-27] MEDS: BETAMETHASONE DIPR 0.05% CREAM 15 GM TUBE TP SCH ×2 (11:22→23:03)
--- NOTE | 2020-01-27 12:10 | PN ---
Progress Note, Physician History of Present Illness: c/o of itching whole body rash - Current Medication List Current Medications: Active Medications Acetaminophen (Tylenol -) 650 mg PO Q6H PRN PRN Reason: Fever Or Pain Last Admin: 01/26/20 21:59 Dose: 650 mg Documented by: Albuterol Sulfate (Ventolin Hfa Inhaler -) 2 puff IH Q4H PRN PRN Reason: SHORT OF BREATH/WHEEZING Betamethasone Dipropionate (Diprosone 0.05% Cream -) 1 applic TP BID [facility] Last Admin: 01/26/20 22:38 Dose: 1 applic Documented by: Clonazepam (Klonopin -) 0.5 mg PO BID PRN PRN Reason: ANXIETY Last Admin: 01/27/20 07:02 Dose: 0.5 mg Documented by: Doxycycline Hyclate (Vibramycin -) 100 mg PO BID@1000,1800 [facility] Last Admin: 01/27/20 10:45 Dose: 100 mg Documented by: Duloxetine HCl (Cymbalta -) 30 mg PO DAILY [facility] Last Admin: 01/27/20 10:48 Dose: 30 mg Documented by: Fluticasone Propionate (Flonase -) 1 spray NS DAILY PRN PRN Reason: ALLERGIES Hydromorphone HCl (Dilaudid -) 2 mg PO Q12H PRN PRN Reason: PAIN LEVEL 6-10 Last Admin: 01/27/20 06:51 Dose: 2 mg Documented by: Hydroxyzine Pamoate (Vistaril -) 50 mg PO Q8H PRN PRN Reason: itching Last Admin: 01/27/20 10:45 Dose: 50 mg Documented by: Insulin Aspart (Novolog Vial Sliding Scale -) 1 vial SQ [facility]; Protocol Last Admin: 01/27/20 11:07 Dose: 4 unit Documented by: Insulin Detemir (Levemir Vial) 15 units SQ AM [facility] Last Admin: 01/27/20 06:52 Dose: 15 units Documented by: Loratadine (Claritin -) 10 mg PO DAILY [facility] Last Admin: 01/27/20 10:45 Dose: 10 mg Documented by: Methylprednisolone Sodium Succinate (Solu-Medrol -) 40 mg IVPUSH Q8H-IV [facility] Last Admin: 01/27/20 10:45 Dose: 40 mg Documented by: Montelukast Sodium (Singulair -) 10 mg PO [facility] Last Admin: 01/26/20 21:53 Dose: 10 mg Documented by: Nifedipine (Procardia Xl -) 60 mg PO DAILY [facility] Last Admin: 01/27/20 11:04 Dose: Not Given Documented by: Non-Formulary Medication (Metaxalone [Skelaxin]) 800 mg PO TID [facility] Pantoprazole Sodium (Protonix -) 40 mg PO DAILY [facility] Last Admin: 01/27/20 10:46 Dose: 40 mg Documented by: Rosuvastatin Calcium (Crestor -) 5 mg PO [facility] Last Admin: 01/26/20 21:53 Dose: 5 mg Documented by: - Objective Vital Signs: Vital Signs Temperature 97.8 F 01/27/20 10:00 Pulse Rate 82 01/27/20 10:00 Respiratory Rate 18 01/27/20 10:00 Blood Pressure 124/76 01/27/20 10:00 O2 Sat by Pulse Oximetry (%) 95 01/27/20 10:00 Constitutional: Yes: No Distress, Calm, Obese Cardiovascular: Yes: S1, S2 Respiratory: Yes: Regular, CTA Bilaterally Gastrointestinal: Yes: Normal Bowel Sounds, Soft Musculoskeletal: Yes: WNL Extremities: Yes: WNL Integumentary: Yes: Rash (all over the body/scratching) Neurological: Yes: Alert, Oriented Psychiatric: Yes: Alert, Oriented Labs: CBC, BMP 01/27/20 08:05 01/27/20 08:05 INR, PTT INR 1.09 (0.83-1.09) 01/25/20 15:15 Assessment/Plan this patient with multiple medical problems coming in with sudden onset of rash and lactic acidosis also with h/o of bite plan continue doxy itching =management rest as per the team biopsy
--- NOTE | 2020-01-27 13:44 | CONSULT ---
Consult Consult Specialty:: Rheumatology - History of Present Illness History of Present Illness: 54 year old female patient with past medical history of anxiety, osteoarthritis in knees, chronic neck and low back pain, fibromyalgia and COVID last september, admitted with diffuse skin rash. HPI. The patient reports that 2 months ago she developed a skin rash on calves, possibly with petechiae that became coalescent. On 01/08/20 the skin rash in lower limbs progressed, accompanied by pruritus and edema. She was seen by a assembly line brazer who diagnosed Schoenber disease and discontinued Ca channel b locker medications. The skin rash progressed to involve abdomen, back and upper limbs. In the ER she was found to have fever (103) and since then it has been normal. 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 Glucose 226, and urinalysis with glucose 3+ and LE 1+. - History Source History Provided By: Patient, Medical Record - Past Medical History Pulmonary: Yes: Asthma Musculoskeletal: Yes: Chronic low back pain Rheumatology: Yes: Fibromyalgia - Alcohol/Substance Use Hx Alcohol Use: No - Smoking History Smoking history: Never smoked Have you smoked in the past 12 months: No Aproximately how many cigarettes per day: 0 If you are a former smoker, when did you quit?: 2005 Home Medications - Allergies Allergies/Adverse Reactions: Allergies Allergy/AdvReac Type Severity Reaction Status Date / Time Penicillins Allergy Unknown Verified 01/25/20 19:08 DUST MITES Allergy Unknown Uncoded 01/25/20 19:08 - Home Medications Home Medications: Ambulatory Orders Gabapentin 600 mg PO TID 01/01/16 Meloxicam [Mobic] 15 mg PO DAILY 01/01/16 Metaxalone [Skelaxin] 800 mg PO TID 01/01/16 Duloxetine HCl [Cymbalta] 30 mg PO DAILY 01/25/20 Nifedipine [Procardia Xl] 60 mg PO DAILY 01/25/20 clonazePAM [Klonopin -] 0.5 mg PO BID PRN 01/25/20 Chlorthalidone 25 mg PO DAILY 01/26/20 HYDROmorphone [Dilaudid -] 2 mg PO BID PRN 01/26/20 Hydroxyzine HCl 50 ng PO DAILY 01/26/20 Levocetirizine Dihydrochloride [Xyzal] 5 mg PO DAILY 01/26/20 Montelukast Sodium [Singulair] 10 mg PO DAILY 01/26/20 Rosuvastatin Calcium [Crestor] 5 mg PO DAILY 01/26/20 Review of Systems - Review of Systems Constitutional: reports: No Symptoms Eyes: reports: No Symptoms HENT: reports: No Symptoms Neck: reports: No Symptoms Cardiovascular: reports: No Symptoms Respiratory: reports: No Symptoms Gastrointestinal: reports: No Symptoms Musculoskeletal: reports: Other (Chronic neck and low back pain.) Integumentary: reports: Other (See HPI) Physical Exam Vital Signs: Vital Signs Temperature 97.8 F 01/27/20 10:00 Pulse Rate 82 01/27/20 10:00 Respiratory Rate 18 01/27/20 10:00 Blood Pressure 124/76 01/27/20 10:00 O2 Sat by Pulse Oximetry (%) 95 01/27/20 10:00 Constitutional: Yes: Mild Distress Eyes: Yes: WNL HENT: Yes: WNL Cardiovascular: Yes: WNL Respiratory: Yes: WNL Gastrointestinal: Yes: WNL Musculoskeletal: Yes: Other (No active joints.) Integumentary: Yes: Other (Erythematous elevated rash in hands. Mild erythema in chest. No active rash in lower limbs) Labs: CBC, BMP 01/27/20 08:05 01/27/20 08:05 Laboratory Tests 01/25/20 01/26/20 01/27/20 18:10 10:46 08:05 ESR 38 H Hemoglobin A1c % 7.8 H Calcium Phosphorus Magnesium Total Bilirubin AST ALT Alkaline Phosphatase Total Protein Albumin Urine Appearance Clear Urine pH 5.5 Ur Specific Agar 1.019 Urine Protein Trace Urine Glucose (UA) 3+ H Urine Ketones Negative Urine Blood Negative Urine Nitrite Negative Urine Bilirubin Negative Urine Urobilinogen 1.0 Ur Leukocyte Esterase 1+ H Urine WBC (Auto) 146 Urine RBC (Auto) 9 Urine Casts (Auto) 6 U Epithel Cells (Auto) 13 01/27/20 08:05 ESR Hemoglobin A1c % Calcium 9.1 Phosphorus 2.4 L Magnesium 2.7 H Total Bilirubin 0.4 AST 11 L ALT 31 Alkaline Phosphatase 64 Total Protein 6.9 Albumin 3.8 Urine Appearance Urine pH Ur Specific Agar Urine Protein Urine Glucose (UA) Urine Ketones Urine Blood Urine Nitrite Urine Bilirubin Urine Urobilinogen Ur Leukocyte Esterase Urine WBC (Auto) Urine RBC (Auto) Urine Casts (Auto) U Epithel Cells (Auto) Problem List - Problems (1) Rash Assessment/Plan: Three month history of skin rash with significant progression in the last few days. Etiology to be determined. The initial presentation was compatible with hypersensitivity vasculitis, however at the present time it is a very different pattenr. Most likely not related with rheumatological disease. Plan: I requested consult to Dr. Schultz for skin biopsy. As I don't have a diagnosis I do not suggest treatment with steroids. Code(s): R21 - RASH AND OTHER NONSPECIFIC SKIN ERUPTION
[2020-01-27] MEDS ORDERED: hydrOXYzine HCL 50 MG/ML VIAL IM ONE (15:15)
[2020-01-27] MEDS ORDERED: LABETALOL HCL 100 MG TABLET (FP) PO SCH ×2 (15:35→22:00)
--- NOTE | 2020-01-27 16:15 | PN ---
Teaching Attending Note Name of Resident: Naveed Osei ATTENDING PHYSICIAN STATEMENT I saw and evaluated the patient. I reviewed the resident's note and discussed the case with the resident. I agree with the resident's findings and plan as documented. SUBJECTIVE: seen around 9 am No fever or chills. complains of itching and request different creams and wants higher dose of IV steroids. she feels anxious. she declined nifedipine today despite BP of 166. procrdia gives her edema. OBJECTIVE: Anxious MMM Cv: RRR, no mRG Lungs: CTAB skin: macuopapular rash has improved and even resolved in certain areas of the body. stillhas erythematous spots. hyperpigmented non blanching areas on feet and lower legs, purpuritic raised rash on hands and wrists is still the same. centrally clear lesions have disappeared . No rash on palms and soles ASSESSMENT AND PLAN: 54 y/o lady with h/o fibromyalgia, anxiety, Dm ( not onmeds ) panic attacks, DJD, angina, HTN, HLP, and recent PNA , had COVID in 09/22, who presented with generalized rash 1- Rash: suspicion for urticarial vasculitis. improved on steorids. case was dw dr. Zhang this afternoon, who agreed on low dose steroids ( prednisone 10 mg daily , until she follows with derm as outp t) . Dr. Crooks is out of office till end of February, and Eduin Spear is on vacation till 01/29. dr. manzo will perform bx at bedside today - we scheduled her an appointment with ehr physical therapy instructor at [facility] on 01/30 at 9:30 labs and Bx results to be followed f/u with dr. Zhang and derm at [place] to establish a diagnosis she is to cont H1, H2 blockers at home cont doxy 12 more days , labs ( hepatitis , autoimmune , and lyme ) to be followed after [place] by her pcp, derm, and rheum 2- HTN: she declined Nifedipine. will replace with Labetalol bid and cont her chlorthalidone at [place] f/u with pcp 3- DM: A1c noted. will start on metformin xl 1000 at [facility]. will give SSI to take while on steroids as sugars are expected to be elevated 4- confirmed she is on dilaudid for pain at home . cont 5- Asymptomatic pyuria 6- Elevated D dimer: US with no DVT . will d/w her CTA to r/o PE. clinically, not hypoxic and no EKG evidence of R heart strain. If she agrees to CTA will do it dc home today if CTA is neg and if skin Bx is done
[2020-01-27] MEDS: ACETAMINOPHEN 325 MG TABLET (FP) PO PRN (16:44)
--- NOTE | 2020-01-27 17:12 | PN ---
Progress Note (short form) - Note Progress Note: Vascular Surgery Right wrist skin biopsy done. Consent obtained. Lidocaine given to right wrist raised purpuric rash. Using a scalpal, biopsy performed. Sent down in formalin. Bacitracin daily to area. Leonel Schultz DO
[2020-01-27] MEDS ORDERED: LABETALOL HCL 100 MG TABLET (FP) PO ONE (18:04)
[2020-01-27] MEDS: BACITRACIN 15 GM TUBE TOPICAL OINTMENT TP SCH (18:16)
--- NOTE | 2020-01-27 19:36 | PN ---
Physical Exam: SUBJECTIVE: No overnight events. Patient seen and examined. Pt endorses pruritus and pain 2/2 rash on her arms, legs, abdomen, and back. However, pruritus improved. OBJECTIVE: Vital Signs Period Temp Pulse Resp BP Sys/Lopez Pulse Ox Last 24 Hr 97.8 F-98.4 F 82-98 18-20 120-161/76-95 94-96 GENERAL: The patient is awake, alert, and fully oriented. In distress due to pruritus & pain. HEENT: NT, NC. MMM. Healing ulcer at site of alleged tick bite s/p removal. Unable to assess Lungs, Heart and abdomen 2/2 pt refusal. EXTREMITIES: non-pitting edema of hands and legs NEUROLOGICAL: gait not observed. PSYCH: anxious SKIN: maculopapular rash on legs, arms, abdomen, back. blanching erythema on back. Dorsum of hands were purple. Laboratory Results - last 24 hr 01/25/20 01/25/20 01/25/20 19:00 19:00 19:00 WBC RBC Hgb Hct MCV MCH MCHC RDW Plt Count MPV Absolute Neuts (auto) Neutrophils % Lymphocytes % Monocytes % Eosinophils % Basophils % Nucleated RBC % Sodium Potassium Chloride Carbon Dioxide Anion Gap BUN Creatinine Est GFR (CKD-EPI)AfAm Est GFR (CKD-EPI)NonAf POC Glucometer Random Glucose Hemoglobin A1c % Calcium Phosphorus Magnesium Total Bilirubin AST ALT Alkaline Phosphatase Total Protein Albumin Lyme Screen IgG & IgM <0.91 <0.91 Lyme Disease (Early) Ab <0.80 01/26/20 01/27/20 01/27/20 22:37 06:45 08:05 WBC RBC Hgb Hct MCV MCH MCHC RDW Plt Count MPV Absolute Neuts (auto) Neutrophils % Lymphocytes % Monocytes % Eosinophils % Basophils % Nucleated RBC % Sodium Potassium Chloride Carbon Dioxide Anion Gap BUN Creatinine Est GFR (CKD-EPI)AfAm Est GFR (CKD-EPI)NonAf POC Glucometer 312 228 Random Glucose Hemoglobin A1c % 7.8 H Calcium Phosphorus Magnesium Total Bilirubin AST ALT Alkaline Phosphatase Total Protein Albumin Lyme Screen IgG & IgM Lyme Disease (Early) Ab 01/27/20 01/27/20 01/27/20 08:05 08:05 10:53 WBC 13.0 H RBC 3.88 Hgb 12.2 Hct 36.0 MCV 93.0 MCH 31.6 MCHC 34.0 RDW 13.3 Plt Count 266 MPV 8.4 Absolute Neuts (auto) 11.2 H Neutrophils % 86.6 H Lymphocytes % 9.2 D Monocytes % 2.1 L Eosinophils % 1.6 D Basophils % 0.5 D Nucleated RBC % 0 Sodium 138 Potassium 3.7 Chloride 101 Carbon Dioxide 29 Anion Gap 7 L BUN 24.0 H Creatinine 0.9 Est GFR (CKD-EPI)AfAm 82.84 Est GFR (CKD-EPI)NonAf 71.48 POC Glucometer 203 Random Glucose 226 H Hemoglobin A1c % Calcium 9.1 Phosphorus 2.4 L Magnesium 2.7 H Total Bilirubin 0.4 AST 11 L ALT 31 Alkaline Phosphatase 64 Total Protein 6.9 Albumin 3.8 Lyme Screen IgG & IgM Lyme Disease (Early) Ab 01/27/20 16:36 WBC RBC Hgb Hct MCV MCH MCHC RDW Plt Count MPV Absolute Neuts (auto) Neutrophils % Lymphocytes % Monocytes % Eosinophils % Basophils % Nucleated RBC % Sodium Potassium Chloride Carbon Dioxide Anion Gap BUN Creatinine Est GFR (CKD-EPI)AfAm Est GFR (CKD-EPI)NonAf POC Glucometer 219 Random Glucose Hemoglobin A1c % Calcium Phosphorus Magnesium Total Bilirubin AST ALT Alkaline Phosphatase Total Protein Albumin Lyme Screen IgG & IgM Lyme Disease (Early) Ab Active Medications Generic Name Dose Route Start Last Admin Trade Name Freq PRN Reason Stop Dose Admin Acetaminophen 650 mg 01/25/20 18:29 01/27/20 16:44 Tylenol - PO 650 mg Q6H PRN Administration Fever Or Pain Albuterol Sulfate 2 puff 01/26/20 22:32 Ventolin Hfa Inhaler - IH Q4H PRN SHORT OF BREATH/WHEEZING Bacitracin 1 applic 01/27/20 17:45 01/27/20 18:16 Bacitracin - TP 1 applic DAILY TISHA Administration Betamethasone Dipropionate 1 applic 01/25/20 22:00 01/27/20 11:22 Diprosone 0.05% Cream - TP Not Given BID TISHA Clonazepam 0.5 mg 01/27/20 12:41 01/27/20 14:21 Klonopin - PO 0.5 mg TID PRN Administration ANXIETY Doxycycline Hyclate 100 mg 01/26/20 11:01 01/27/20 17:34 Vibramycin - PO 100 mg BID@1000,1800 TISHA Administration Duloxetine HCl 30 mg 01/26/20 10:00 01/27/20 10:48 Cymbalta - PO 30 mg DAILY TISHA Administration Fluticasone Propionate 1 spray 01/26/20 22:32 Flonase - NS DAILY PRN ALLERGIES Hydromorphone HCl 2 mg 01/26/20 18:24 01/27/20 06:51 Dilaudid - PO 2 mg Q12H PRN Administration PAIN LEVEL 6-10 Hydroxyzine HCl 50 mg 01/27/20 12:11 Vistaril Injection - IM Q6H PRN FOR ITCHING Insulin Aspart 1 vial 01/26/20 11:30 01/27/20 17:40 Novolog Vial Sliding Scale - SQ 4 unit ACHS TISHA Administration Protocol Insulin Detemir 15 units 01/27/20 07:00 01/27/20 06:52 Levemir Vial SQ 15 units AM TISHA Administration Loratadine 10 mg 01/27/20 10:00 01/27/20 10:45 Claritin - PO 10 mg DAILY TISHA Administration Montelukast Sodium 10 mg 01/26/20 22:00 01/26/20 21:53 Singulair - PO 10 mg HS TISHA Administration Multi-Ingredient Lotion 1 applic 01/27/20 12:12 Eucerin (Large Jar) - TP BID PRN DRY SKIN Non-Formulary Medication 800 mg 01/25/20 22:00 Metaxalone [Skelaxin] PO TID TISHA Pantoprazole Sodium 40 mg 01/25/20 18:30 01/27/20 10:46 Protonix - PO 40 mg DAILY TISHA Administration Prednisone 10 mg 01/28/20 10:00 Deltasone - PO DAILY TISHA Rosuvastatin Calcium 5 mg 01/26/20 22:00 01/26/20 21:53 Crestor - PO 5 mg HS TISHA Administration ASSESSMENT/PLAN: 54 YO F PMH Chronic back pain, anxiety, fibromyalgia, HTN, HLD, asthma, recent PNA, w/ COVID in September, and 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 #Rash -CRP 24.5 -WISAM, c-ANCA, p-ANCA, Hep B, Hep C ordered s/p methylprednisolone 40 mg IV Q8H. prednisone 10 mg DAILY until her derm appt outpt - hydroxyzine 50 mg PO QH PRN for pruritus -ID c/s appreciated. c/w doxycycline 100 mg PO BID X12 d -Dr. Schultz completed biopsy today. -f/u lyme serology, biopsy results outpt #DM -s/p Levemir 10 units SQ. Levemir 15 units SQ AM starting tomorrow. -c/w ISS -HgbA1c: 7.8 #D-Dimer elevated: 9208 -Duplex LE showed no DVT. CTA ordered. #Anxiety -clonazepam (Klonopin) 0.5 mg PO BID PRN #Fibromyalgia -duloxetine (Cymbalta) 30 mg PO daily -hydromorphone 2 mg PO BID PRN for pain #HTN -started labetalol 100 mg BID #HLD Rosuvastatin 5 mg PO daily #Asthma c/w singulair #FEN no IV fluis monitor lytes diabetic/na controlled diet #DVT PPX SCD #DISPO maintian med surg D/C home TODAY if CTA is neg Visit type - Emergency Visit Emergency Visit: Yes ED Registration Date: 01/25/20 Care time: The patient presented to the Emergency Department on the above date and was hospitalized for further evaluation of their emergent condition. - New Patient This patient is new to me today: No - Critical Care Critical Care patient: No ATTENDING PHYSICIAN STATEMENT I saw and evaluated the patient. I reviewed the resident's note and discussed the case with the resident. I agree with the resident's findings and plan as documented. SUBJECTIVE: OBJECTIVE: ASSESSMENT AND PLAN:
[2020-01-27] MEDS ORDERED: MELATONIN 5 MG TABLETS PO ONE (22:26)
[2020-01-27] MEDS ORDERED: ALPRAZolam 1 MG TABLET PO PRN (22:53)
[2020-01-27] MEDS ORDERED: PT OWN MED DRAWER 7, Y5N ONE (22:57)
[2020-01-27] MEDS: MINERAL OIL/PETROLAT/WATER TOPICAL CREAM 454 GM JAR TP PRN (23:04)
[2020-01-27] MEDS: ROSUVASTATIN CA 5 MG TABLET (FP) PO SCH (23:04)
[2020-01-27] MEDS: MONTELUKAST NA 10 MG TABLET PO SCH (23:04)
[2020-01-27] MEDS: hydrOXYzine HCL 50 MG/ML VIAL IM PRN (23:05)
[2020-01-28] MEDS: GABAPENTIN 300 MG CAPSULE PO SCH ×2 (02:21→13:25)
[2020-01-28] MEDS ORDERED: HYDROCORTISONE 1% TOPICAL LOTION 118 ML BOTTLE TP ONE (03:02)
[2020-01-28] MEDS: clonazePAM 0.5 MG TABLET PO PRN ×2 (03:16→09:57)
[2020-01-28 05:07] LABS: HEP B CORE AB, TOT Positive (Negative)
[2020-01-28] MEDS ORDERED: hydrOXYzine HCL 100 MG/2 ML VIAL IM ONE (05:07)
[2020-01-28] MEDS: INSULIN (LEVEMIR) 100 UNITS/ML UNITS SQ SCH (06:41)
[2020-01-28] MEDS: INSULIN SLIDING SCALE (NOVOLOG) 1 VIAL SQ SCH ×2 (06:41→11:22)
[2020-01-28] MEDS: HYDROmorphone HCL 2 MG TABLET PO PRN (06:42)
[2020-01-28 07:40] LABS: BASO % 0.2 % (0-2.0); EOS % 0.1 % (0-4.5); HEMATOCRIT 34.8 % (32.4-45.2); HEMOGLOBIN 11.6 GM/dL (10.7-15.3); MCHC 33.5 g/dl (32.0-36.0); MEAN CELL VOLUME 92.5 fl (80-96); MEAN PLT VOLUME 7.6 fl (7.5-11.1); MONO % 8.9 % (3.8-10.2); NEUT % 67.8 % (42.8-82.8); PLATELET COUNT 282 K/MM3 (134-434); RBC 3.76 M/mm3 (3.60-5.2); RDW 13.5 % (11.6-15.6); WHITE BLOOD COUNT 12.2 K/mm3 (4.0-10.0)
[2020-01-28 08:04] LABS: ALBUMIN 3.3 g/dl (3.4-5.0); BILIRUBIN,TOTAL 0.2 mg/dL (0.2-1); CALCIUM 8.3 mg/dL (8.5-10.1); MAGNESIUM 2.5 mg/dL (1.8-2.4); PHOSPHOROUS 2.9 mg/dL (2.5-4.9); POTASSIUM 3.2 mmol/L (3.5-5.1); TOT PROT 6.1 g/dl (6.4-8.2)
[2020-01-28 09:44] LABS: PLATELET ESTIMATE NORMAL
[2020-01-28] MEDS: LORATADINE 10 MG TABLET PO SCH (09:57)
[2020-01-28] MEDS: MINERAL OIL/PETROLAT/WATER TOPICAL CREAM 454 GM JAR TP PRN (09:57)
[2020-01-28] MEDS: PANTOPRAZOLE 40 MG TABLET PO SCH (09:57)
[2020-01-28] MEDS: DOXYCYCLINE HYCLATE 100 MG CAPSULE PO SCH (09:57)
[2020-01-28] MEDS ORDERED: predniSONE 10 MG TABLET (UD) PO SCH (10:00)
[2020-01-28] MEDS ORDERED: PT OWN MED DRAWER 7, Y5N ONE ×2 (10:00→14:16)
[2020-01-28] MEDS: BACITRACIN 15 GM TUBE TOPICAL OINTMENT TP SCH (10:01)
[2020-01-28] MEDS: DULoxetine HCL 30 MG CAPSULE.DR PO SCH (10:02)
[2020-01-28] MEDS: BETAMETHASONE DIPR 0.05% CREAM 15 GM TUBE TP SCH (10:02)
[2020-01-28 10:06] VITALS: TEMP 98.3
--- NOTE | 2020-01-28 10:40 | PN ---
Progress Note, Physician History of Present Illness: itching still present rash better - Current Medication List Current Medications: Active Medications Acetaminophen (Tylenol -) 650 mg PO Q6H PRN PRN Reason: Fever Or Pain Last Admin: 01/27/20 16:44 Dose: 650 mg Documented by: Albuterol Sulfate (Ventolin Hfa Inhaler -) 2 puff IH Q4H PRN PRN Reason: SHORT OF BREATH/WHEEZING Last Admin: 01/28/20 10:14 Dose: 2 puff Documented by: Bacitracin (Bacitracin -) 1 applic TP DAILY [facility] Last Admin: 01/28/20 10:01 Dose: 1 applic Documented by: Betamethasone Dipropionate (Diprosone 0.05% Cream -) 1 applic TP BID [facility] Last Admin: 01/28/20 10:02 Dose: Not Given Documented by: Clonazepam (Klonopin -) 0.5 mg PO TID PRN PRN Reason: ANXIETY Last Admin: 01/28/20 09:57 Dose: 0.5 mg Documented by: Doxycycline Hyclate (Vibramycin -) 100 mg PO BID@1000,1800 [facility] Last Admin: 01/28/20 09:57 Dose: 100 mg Documented by: Duloxetine HCl (Cymbalta -) 30 mg PO DAILY [facility] Last Admin: 01/28/20 10:02 Dose: 30 mg Documented by: Fluticasone Propionate (Flonase -) 1 spray NS DAILY PRN PRN Reason: ALLERGIES Last Admin: 01/27/20 23:43 Dose: 1 spray Documented by: Gabapentin (Neurontin -) 600 mg PO TID [facility] Last Admin: 01/28/20 02:21 Dose: 600 mg Documented by: Hydromorphone HCl (Dilaudid -) 2 mg PO Q12H PRN PRN Reason: PAIN LEVEL 6-10 Last Admin: 01/28/20 06:42 Dose: 2 mg Documented by: Hydroxyzine HCl (Vistaril Injection -) 50 mg IM Q6H PRN PRN Reason: FOR ITCHING Last Admin: 01/27/20 23:05 Dose: 50 mg Documented by: Insulin Aspart (Novolog Vial Sliding Scale -) 1 vial SQ ACHS [facility]; Protocol Last Admin: 01/28/20 06:41 Dose: 6 unit Documented by: Insulin Detemir (Levemir Vial) 15 units SQ AM [facility] Last Admin: 01/28/20 06:41 Dose: 15 units Documented by: Loratadine (Claritin -) 10 mg PO DAILY [facility] Last Admin: 01/28/20 09:57 Dose: 10 mg Documented by: Montelukast Sodium (Singulair -) 10 mg PO HS [facility] Last Admin: 01/27/20 23:04 Dose: 10 mg Documented by: Multi-Ingredient Lotion (Eucerin (Large Jar) -) 1 applic TP BID PRN PRN Reason: DRY SKIN Last Admin: 01/28/20 09:57 Dose: 1 applic Documented by: Non-Formulary Medication (Metaxalone [Skelaxin]) 800 mg PO TID [facility] Pantoprazole Sodium (Protonix -) 40 mg PO DAILY [facility] Last Admin: 01/28/20 09:57 Dose: 40 mg Documented by: Prednisone (Deltasone -) 10 mg PO DAILY [facility] Last Admin: 01/28/20 09:57 Dose: 10 mg Documented by: Rosuvastatin Calcium (Crestor -) 5 mg PO [facility] Last Admin: 01/27/20 23:04 Dose: 5 mg Documented by: - Objective Vital Signs: Vital Signs Temperature 98.3 F 01/28/20 09:49 Pulse Rate 87 01/28/20 09:49 Respiratory Rate 18 01/28/20 09:49 Blood Pressure 143/81 01/28/20 09:49 O2 Sat by Pulse Oximetry (%) 97 01/28/20 09:49 Constitutional: Yes: Calm, Moderate Distress HENT: Yes: Atraumatic, Normocephalic Neck: Yes: Supple Cardiovascular: Yes: S1, S2 Respiratory: Yes: Regular, CTA Bilaterally Gastrointestinal: Yes: Normal Bowel Sounds, Soft Musculoskeletal: Yes: WNL Extremities: Yes: WNL Integumentary: Yes: Rash Neurological: Yes: Alert, Oriented Psychiatric: Yes: Alert, Oriented Labs: CBC, BMP 01/28/20 07:00 01/28/20 07:00 INR, PTT INR 1.09 (0.83-1.09) 01/25/20 15:15 Assessment/Plan this patient with multiple medical problems coming in with sudden onset of rash and lactic acidosis also with h/o of bite plan continue current mgmt need to follow up with rheumatology locl symptomatic releif await for biopsy result rest as per the team
[2020-01-28] MEDS ORDERED: HYDROCORTISONE SOD SUCCINATE 100 MG/2 ML VIAL IVPUSH ONE (10:51)
[2020-01-28] MEDS: hydrOXYzine HCL 50 MG/ML VIAL IM PRN (11:27)
[2020-01-28] MEDS: ACETAMINOPHEN 325 MG TABLET (FP) PO PRN (11:35)
[2020-01-28] MEDS ORDERED: PNEUMOC 13-VAL CONJ-DIP CRM/PF 0.5 ML DISP.SYRIN IM ONE (14:22)
[2020-01-28 14:32] VITALS: BP 142/80; PULSE 85
--- NOTE | 2020-01-28 18:43 | PN ---
Teaching Attending Note Name of Resident: Naveed Osei ATTENDING PHYSICIAN STATEMENT I saw and evaluated the patient. I reviewed the resident's note and discussed the case with the resident. I agree with the resident's findings and plan as documented. SUBJECTIVE: No fever or chills. very difficult today and asking for different medications li ke clonidine , and IV steroids , and refusing to leave . OBJECTIVE: Anxious MMM Cv: RRR, no mRG Lungs: CTAB skin: macuopapular rash has much improved and even resolved in certain areas of the body. still has erythematous spots. hyperpigmented non blanching areas on feet and lower legs, purpuritic raised rash on hands and wrists isbetter today . No rash on palms and soles no bleeding on biopsy site on R dorsal wrist ASSESSMENT AND PLAN: 54 y/o lady with h/o fibromyalgia, anxiety, Dm ( not onmeds ) panic attacks, DJD, angina, HTN, HLP, and recent PNA , had COVID in 09/22, who presented with generalized rash 1- Rash: suspicion for urticarial vasculitis. improved on steorids. - follow biopsy as out pt - apt with dem as out pt made in 2 days - follow serology as out pt - cont po steroids ( was given a dose of 10 mg of iv solumedrol fro placebo effect as she was naked in her room threatening , and screaming ) - f/u with rheum - doxy course 2- HTN: cont labetalol and chlorthalidone as out pt . will not give clonidine . BP normal 3- DM: A1c noted.start on metformin xl 1000 at [place]. will give SSI to take while on steroids as sugars are expected to be elevated 4- confirmed she is on dilaudid for pain at home . cont 5- Asymptomatic pyuria 6- Elevated D dimer: US with no DVT .CTA with no PE. lung nodule to be followed with imaging. patient was made aware , dc home
--- NOTE | 2020-01-28 23:27 | DS ---
Physical Exam: SUBJECTIVE: No overnight events. Patient seen and examined. Pt endorses pruritus and pain 2/2 rash on her arms, legs, abdomen, and back. OBJECTIVE: Vital Signs Period Temp Pulse Resp BP Sys/Lopez Pulse Ox Last 24 Hr 98.1 F-98.4 F 75-87 18-18 125-160/79-93 95-97 PHYSICAL EXAM GENERAL: The patient is awake, alert, and fully oriented. In distress due to pruritus & pain. PSYCH: anxious Pt refused physical exam. LABS Laboratory Results - last 24 hr 01/25/20 01/27/20 01/28/20 19:00 08:05 06:39 WBC RBC Hgb Hct MCV MCH MCHC RDW Plt Count MPV Absolute Neuts (auto) Neutrophils % Neutrophils % (Manual) Band Neutrophils % Lymphocytes % Lymphocytes % (Manual) Monocytes % Monocytes % (Manual) Eosinophils % Eosinophils % (Manual) Basophils % Basophils % (Manual) Myelocytes % (Man) Promyelocytes % (Man) Blast Cells % (Manual) Nucleated RBC % Metamyelocytes Platelet Estimate Sodium Potassium Chloride Carbon Dioxide Anion Gap BUN Creatinine Est GFR (CKD-EPI)AfAm Est GFR (CKD-EPI)NonAf POC Glucometer 271 Random Glucose Calcium Phosphorus Magnesium Total Bilirubin AST ALT Alkaline Phosphatase Total Protein Albumin Lyme IgM 23 kDa Band No Result Required. Lyme IgM 39 kDa Band No Result Required. Lyme IgM 41 kDa Band No Result Required. Hep Bs Antigen Negative Hep Bs Antibody, Quant 130.6 Hep B Core Total Ab Positive H Hep B Core IgM Ab Negative 01/28/20 01/28/20 07:00 07:00 WBC 12.2 H RBC 3.76 Hgb 11.6 Hct 34.8 MCV 92.5 MCH 31.0 MCHC 33.5 RDW 13.5 Plt Count 282 MPV 7.6 Absolute Neuts (auto) 8.3 H Neutrophils % 67.8 D Neutrophils % (Manual) 71.3 Band Neutrophils % 0.0 Lymphocytes % 23.0 D Lymphocytes % (Manual) 26.7 D Monocytes % 8.9 D Monocytes % (Manual) 2 L D Eosinophils % 0.1 D Eosinophils % (Manual) 0.0 D Basophils % 0.2 Basophils % (Manual) 0.0 Myelocytes % (Man) 0 Promyelocytes % (Man) 0 Blast Cells % (Manual) 0 Nucleated RBC % 0 Metamyelocytes 0 D Platelet Estimate Normal Sodium 142 Potassium 3.2 L Chloride 104 Carbon Dioxide 28 Anion Gap 10 BUN 18.0 Creatinine 1.0 Est GFR (CKD-EPI)AfAm 72.93 Est GFR (CKD-EPI)NonAf 62.93 POC Glucometer Random Glucose 283 H Calcium 8.3 L Phosphorus 2.9 Magnesium 2.5 H Total Bilirubin 0.2 AST 19 ALT 32 Alkaline Phosphatase 62 Total Protein 6.1 L Albumin 3.3 L Lyme IgM 23 kDa Band Lyme IgM 39 kDa Band Lyme IgM 41 kDa Band Hep Bs Antigen Hep Bs Antibody, Quant Hep B Core Total Ab Hep B Core IgM Ab HOSPITAL COURSE: 54 YO F PMH Chronic back pain, anxiety, fibromyalgia, HTN, HLD, asthma, recent PNA, w/ COVID in September, and 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 Pt was given methylprednisolone 40 mg IV and hydroxyzine 50 mg PO QH PRN for pruritus. Pt was given doxycyline for possible Lyme disease. CRP was 24.5. WISAM, c-ANCA, p-ANCA, Hep B, Hep C ordered. A skin biopsy was performed. Pt will follow-up on these results outpatient. D-Dimer was elevated at 9208. Duplex LE did not show evidence of DVT. CTA did not show evidence of PE. Pt is stable for discharge Date of Admission:01/25/20 Date of Discharge: 01/28/20 Minutes to complete discharge: 60 Discharge Summary Problems reviewed: Yes Reason For Visit: CELLULITIS Condition: Improved - Instructions Diet, Activity, Other Instructions: You came into the hospital for a rash throughout your body. You had several blood tests. You were evaluated by the Infectious disease physician, the bridges supervisor, the commission specialist. You were given steroids and antihistamines. You had a skin biopsy, we will call you back with the result. You are now stable for discharge While in the hospital your diabetes number (A1C) was found to be elevated at 7.8% Please take doxycycline 100 mg twice a day for 12 more days. Please take Prednisone 15mg daily until you see your commission specialist Please take Metformin 1000 mg daily with your evening meal You may take hydroxyzine three times a day as needed for itchiness Please do not take Nifedipine,. Please take labetalol 100 twice a day instead . Please take protonix 40 mg daily while you are on the steroids. Please continue to check your blood sugars and to use sliding scale as directed ( while you are o n prednisone as it is expected to raise your sugar ) . Please keep a log of your blood sugars Sliding Scale: BGM Dose 101-150 0 Units 151-200 2 U 201-250 4 U 251-300 6 U 301-350 8 U 351-400 10 U ; call your doctor >400 call MD 12 units and CALL MD Please continue your additional home medications as prescribed. Please follow up with your primary care physician in 1 week to monitor your overall healthcare. You will need repeat blood count and metabolic panel Please follow up with your commission specialist at [facility] regarding your skin. Your appointment is scheduled for Tuesday 01/30 at 9:30 am at [facility] dermatology Please follow up with the bridges supervisor, Dr. Zhang regarding further auto immune causes Please follow up with an precision filer hand regarding your diabetes. A referral is attached for Dr. Roche Please follow a low sugar, low carb diet. If you have any new, worsening, or concerning symptoms please return to the ED or call 911. there is a calcified lesion in your upper lung filed. follow up with yearly imaging is recommended . Referrals: Daniel Zhang MD [Staff Physician] - 1 Week Tang Roche MD [Staff Physician] - 1 Week Disposition: HOME - Home Medications Comprehensive Discharge Medication List: Ambulatory Orders Gabapentin 600 mg PO TID 01/01/16 Meloxicam [Mobic] 15 mg PO DAILY 01/01/16 Metaxalone [Skelaxin] 800 mg PO TID 01/01/16 Duloxetine HCl [Cymbalta] 30 mg PO DAILY 01/25/20 clonazePAM [Klonopin -] 0.5 mg PO BID PRN 01/25/20 Chlorthalidone 25 mg PO DAILY 01/26/20 HYDROmorphone [Dilaudid -] 2 mg PO BID PRN 01/26/20 Hydroxyzine HCl 50 ng PO DAILY 01/26/20 Levocetirizine Dihydrochloride [Xyzal] 5 mg PO DAILY 01/26/20 Montelukast Sodium [Singulair] 10 mg PO DAILY 01/26/20 Rosuvastatin Calcium [Crestor] 5 mg PO DAILY 01/26/20 Betamethasone Dipropionate [Diprosone 0.05% Cream -] 1 applic TP BID tube 01/04 10/23 Doxycycline Hyclate [Vibramycin -] 100 mg PO BID@1000,1800 #24 capsule 01/27/20 Insulin Sliding Scale [Novolog Vial Sliding Scale -] 1 vial SQ ACHS units 01/27/20 Labetalol HCl [Normodyne -] 100 mg PO BID #60 tablet 01/27/20 Metformin HCl [Glucophage] 1,000 mg PO DAILY #30 tablet 01/27/20 Mineral Oil/Petrolat,Wht/Water [Eucerin (Large Jar) -] 1 applic TP BID PRN jar 01/27/20 Pantoprazole Sodium [Protonix -] 40 mg PO DAILY 30 Days #30 tab 01/27/20 predniSONE [Deltasone -] 15 mg PO DAILY #21 tablet 01/27/20 Clonidine HCl 0.2 mg PO BID 01/28/20 This patient is new to me today: No Emergency Visit: Yes ED Registration Date: 01/25/20 Care time: The patient presented to the Emergency Department on the above date and was hospitalized for further evaluation of their emergent condition. Critical Care patient: No - Discharge Referral Referred to [facility] Med [facility].C.: No ATTENDING PHYSICIAN STATEMENT I saw and evaluated the patient. I reviewed the resident's note and discussed the case with the resident. I agree with the resident's findings and plan as documented. SUBJECTIVE: OBJECTIVE: ASSESSMENT AND PLAN:
[2020-01-31 15:09] LABS: ATYPICAL pANCA <1:20 titer (Neg:<1:20); C-ANCA <1:20 titer (Neg:<1:20)
--- NOTE | 2020-02-03 14:20 | PATH ---
Surgical Pathology Report Patient Name: FENG HERNANDEZ Med. Rec. #: [id number] /Age/Gender: 1965 (Age: 54) / F Account: [id number] Location: [address] [place] [address]/[facility] Taken: 01/30/2020 Received: 01/30/2020 Reported: 02/03/2020 Physicians: Leonel Schultz Specimen(s) Received RIGHT WRIST SKIN Clinical History Purpura rash Final Diagnosis RIGHT WRIST: SMALL VESSEL VASCULITIS Note: The histologic findings may be seen in either leukocytoclastic vasculitis or Henoch Schnlein purpura. Histologic features resembling leukocytoclastic vasculitis may also be in seen in the skin of patients with a systemic vasculitis. If clinically indicated, a direct immunofluorescence study including a fresh lesion would be useful to further evaluate the possibility of Henoch Schnlein purpura. Initial and deeper sections were examined. This case was sent to Dr. Kevin Ayala from [facility], [place], [place] ([id number]) the diagnosis above reflects his opinion. Electronically Signed Hetal Cabral M.D. Gross Description Received in formalin labeled with "right wrist skin biopsy", are 2 portion of superficial skin measuring 1 x 0.4cm and 1.5 x 0.4 cm, with depth measures less than 0.1 cm in thickness. Focal small area of red discoloration is noted at the surface. The specimen is bisected and entirely submitted one cassette. KWS/01/30/2020 sulki/01/30/2020
== END 2020-01-28 15:49 | disposition home or self-care (01) | DRG 607 ==
LOC: JER 12:48 → JERBED 17:26 → J5S 20:26
PROVIDERS: ADMIT Internal Medicine; ATTEND Internal Medicine
PROC: 0HBFXZX Excision of Right Hand Skin, External Approach, Diagnostic (ICD-10-PCS; principal; 2020-01-27)
DX: L95.8 Other vasculitis limited to the skin (principal); L03.818 Cellulitis of other sites; E87.2 Acidosis; J45.909 Unspecified asthma, uncomplicated; E78.5 Hyperlipidemia, unspecified; I10 Essential (primary) hypertension; I20.9 Angina pectoris, unspecified; E66.9 Obesity, unspecified; Z68.34 Body mass index [BMI] 34.0-34.9, adult; F41.9 Anxiety disorder, unspecified; R00.0 Tachycardia, unspecified; M79.7 Fibromyalgia; R73.9 Hyperglycemia, unspecified; F41.0 Panic disorder [episodic paroxysmal anxiety]; M17.0 Bilateral primary osteoarthritis of knee; M54.5 Low back pain; R21 Rash and other nonspecific skin eruption; R82.81 Pyuria; Z88.0 Allergy status to penicillin
CPT/HCPCS: 36415; 71045-TC-FY; 71275-TC; 80053; 81003; 82360; 82728; 82930; 82962; 83036; 83520; 83605; 83735; 83880; 84100; 84484; 85025; 85027; 85379; 85610; 85651; 85730; 86038; 86140; 86256; 86317; 86618; 86704; 86705; 86803; 87040; 87077; 87086; 87207; 87340; 87798; 88305-TC; 93005; 93010; 93970-TC; 99285-25; J0131; J7030; Q9967; U0003